=== PATIENT | female | born 1960 | race Caucasian/White ===

== ENCOUNTER 2019-07-03 10:37 | Outpatient (REF) | payer BC, SELFPAY ==
[2019-07-03 21:40] LABS: Abs Immature Grans 0.01 k/cumm (0.0-0.09); Absolute Basophil Count 0.02 k/cumm (0.0-0.2); Absolute Eosinophil Count 0.12 k/cumm (0.0-0.7); Absolute Lymphocyte Count 1.84 k/cumm (1.2-3.4); Absolute Monocyte Count 0.53 k/cumm (0.11-0.7); Absolute Neutrophil Count 3.03 k/cumm (1.2-6.7); Basophils % 0.4; Eosinophils % 2.2; HCT 38.4 % (36.0-46.0); HGB 12.7 g/dL (12.0-15.5); Immature Grans % 0.2; Lymphocytes % 33.2; Mean Corp. HGB Concentration 33.1 g/dL (32.0-36.0); Mean Corpuscular Hemoglobin 31.2 pg (27.0-33.0); Mean Corpuscular Volume 94.3 fL (80-95); Mean Platelet Volume 11.6 fL (8.0-11.0); Monocytes % 9.5; Neutrophils % 54.5; Platelet Count 295 x1000/uL (130-400); RBC 4.07 m/cumm (4.00-5.20); RBC Distribution Width 12.9 % (11.7-14.6); White Blood Cell Count 5.55 k/cumm (4.4-10.8)
[2019-07-03 21:53] LABS: Anion Gap 10.5 mmol/L (3-11); BUN 21 mg/dL (7-18); CO2 26.5 mmol/L (21.0-32.0); CREATININE 0.85 mg/dL (0.55-1.02); Calcium 9.3 mg/dL (8.5-10.1); Calculated LDL 132 mg/dL; Chloride 103 mmol/L (98-107); Cholesterol 212 mg/dL (50-200); Glucose 99 mg/dL (70-100); HDL Cholesterol 69 mg/dL (40-60); Potassium 4.5 mmol/L (3.5-5.1); Sodium 140 mmol/L (136-145); Triglyceride 58 mg/dL (30-150)
== END 2019-07-03 10:57 ==
LOC: NCHCN 10:37
PROVIDERS: PCP Family Medicine; Visit Provider Family Medicine
DX: I10 Essential (primary) hypertension (principal); E78.2 Mixed hyperlipidemia
CPT/HCPCS: 80048; 80061; 83721; 85025

== ENCOUNTER 2020-06-05 10:52 | Outpatient (REF) | payer BC, SELFPAY ==
[2020-06-05 21:39] LABS: ALT 22 U/L (14-59); AST 15 U/L (15-37); Albumin 4.1 g/dL (3.4-5.0); Alkaline Phosphatase 65 U/L (46-116); Anion Gap 6.6 mmol/L (3-11); BUN 18 mg/dL (7-18); Bilirubin, Total 0.3 mg/dL (0.2-1.0); CO2 28.4 mmol/L (21.0-32.0); CREATININE 0.79 mg/dL (0.55-1.02); Calcium 9.6 mg/dL (8.5-10.1); Calculated LDL 164 mg/dL (<100); Chloride 104 mmol/L (98-107); Cholesterol 244 mg/dL (<200); Glucose 96 mg/dL (74-106); HDL Cholesterol 68 mg/dL (40-60); Potassium 4.6 mmol/L (3.5-5.1); Sodium 139 mmol/L (136-145); Total Protein 7.3 g/dL (6.4-8.2); Triglyceride 61 mg/dL (<150)
== END 2020-06-05 11:12 ==
LOC: NCHCN 10:52
PROVIDERS: PCP Family Medicine; Visit Provider Nurse Practitioner Family
DX: I10 Essential (primary) hypertension (principal); E78.2 Mixed hyperlipidemia; E66.3 Overweight
CPT/HCPCS: 80053; 80061; 83036

== ENCOUNTER 2020-12-12 15:16 | Outpatient (REF) | payer BC, SELFPAY ==
[2020-12-12 14:18] LABS: ALT 21 U/L (14-59); AST 13 U/L (15-37); Albumin 3.9 g/dL (3.4-5.0); Alkaline Phosphatase 62 U/L (46-116); Anion Gap 8.7 mmol/L (3-11); BUN 19 mg/dL (7-18); Bilirubin, Total 0.3 mg/dL (0.2-1.0); CO2 27.3 mmol/L (21.0-32.0); CREATININE 0.8 mg/dL (0.55-1.02); Calcium 9.2 mg/dL (8.5-10.1); Calculated LDL 134 mg/dL (<100); Chloride 103 mmol/L (98-107); Cholesterol 206 mg/dL (<200); Glucose 95 mg/dL (74-106); HDL Cholesterol 63 mg/dL (40-60); Potassium 4.7 mmol/L (3.5-5.1); Sodium 139 mmol/L (136-145); Total Protein 7.2 g/dL (6.4-8.2); Triglyceride 46 mg/dL (<150)
== END 2020-12-12 15:17 | disposition home or self-care (01) ==
LOC: NCHCN 15:16
PROVIDERS: PCP Family Medicine; Visit Provider Nurse Practitioner Family
DX: I10 Essential (primary) hypertension (principal); E78.2 Mixed hyperlipidemia
CPT/HCPCS: 80053; 80061

== ENCOUNTER 2021-09-16 09:02 | Outpatient (REF) | payer BC, SELFPAY ==
--- NOTE | 2021-09-16 08:05 | PAPFT_PTH ---
PATIENT: Ana Joel LOC: [facility] U#:[id number] AGE/SX: 61/F ROOM: RE09/16/[address]: Samantha Carr : 1960 BED: DIS: 09/16/2021 SPEC #: [id number] RECD: 09/16/21 18:28 STATUS: MADINA LAUGHLIN #: [id number] AJAY: 09/16/21 08:[address]: Samantha Carr DEPT: [facility] Cytology RECD BY: Luisa Ramirez ENTERED: 09/16/21 18:28 SP TYPE: PAPFT JONATHANHR DR: Kristen Rod Tissues: 1 - CX/ENDOCX FOR PAP SMEARS Procedures: PAP THIN PREP/UVM Screening HPV DNA PROBE Comments:
[2021-09-16 23:38] LABS: Hemoglobin A1C 5.7 % (<5.7)
[2021-09-16 23:43] LABS: BUN 17 mg/dL (7-18); CREATININE 0.8 mg/dL (0.55-1.02); Calculated LDL 158 mg/dL (<100); Cholesterol 242 mg/dL (<200); Glucose 89 mg/dL (74-106); HDL Cholesterol 65 mg/dL (40-60); Sodium 142 mmol/L (136-145); Triglyceride 99 mg/dL (<150)
[2021-09-16 23:44] LABS: Anion Gap 8.7 mmol/L (3-11); CO2 29.3 mmol/L (21.0-32.0); Chloride 104 mmol/L (98-107); Potassium 4.6 mmol/L (3.5-5.1)
== END 2021-09-16 09:03 | disposition home or self-care (01) ==
LOC: NCHCN 09:02
PROVIDERS: PCP Family Medicine; Visit Provider Nurse Practitioner Family
DX: Z12.4 Encounter for screening for malignant neoplasm of cervix (principal); Z11.51 Encounter for screening for human papillomavirus (HPV); I10 Essential (primary) hypertension; R73.03 Prediabetes; E78.2 Mixed hyperlipidemia
CPT/HCPCS: 80048; 80061; 88142; 83036; 87624

== ENCOUNTER 2023-02-11 16:05 | Outpatient (REF) | payer BC, SELFPAY ==
[2023-02-11 21:26] LABS: ALT 35 U/L (14-59); AST 21 U/L (15-37); Albumin 3.7 g/dL (3.4-5.0); Alkaline Phosphatase 81 U/L (46-116); Anion Gap 6.1 mmol/L (3-11); BUN 26 mg/dL (7-18); Bilirubin, Total 0.2 mg/dL (0.2-1.0); CO2 28.9 mmol/L (21.0-32.0); CREATININE 0.9 mg/dL (0.55-1.02); Calcium 9.2 mg/dL (8.5-10.1); Chloride 104 mmol/L (98-107); Estimated GFR 72.73 (mL/min/1.73m2); Glucose 104 mg/dL (74-106); Potassium 4.2 mmol/L (3.5-5.1); Sodium 139 mmol/L (136-145); Total Protein 7.7 g/dL (6.4-8.2)
== END 2023-02-11 16:06 | disposition home or self-care (01) ==
LOC: NCHCN 16:05
PROVIDERS: PCP Family Medicine; Visit Provider Family Medicine
DX: I10 Essential (primary) hypertension (principal); E78.2 Mixed hyperlipidemia; R73.03 Prediabetes; E66.9 Obesity, unspecified
CPT/HCPCS: 80053

== ENCOUNTER 2024-01-12 15:45 | Outpatient (REF) | payer BC, SELFPAY | END 2024-01-12 15:46 | disposition home or self-care (01) | LOC: NCHCN 15:45 | PROVIDERS: PCP Family Medicine; Referring Provider Family Medicine; Visit Provider Family Medicine | DX: R82.998 Other abnormal findings in urine (principal); R10.9 Unspecified abdominal pain | CPT/HCPCS: 87086 ==

== ENCOUNTER 2024-01-17 18:02 | Outpatient (REF) | payer BC, SELFPAY ==
[2024-01-17 21:29] LABS: Abs Immature Grans 0.02 10^3/uL (0.0-0.06); Absolute Basophil Count 0.03 10^3/uL (0.0-0.2); Absolute Eosinophil Count 0.06 10^3/uL (0.0-0.7); Absolute Lymphocyte Count 1.94 10^3/uL (1.2-3.4); Absolute Monocyte Count 1.04 10^3/uL (0.1-0.8); Absolute Neutrophil Count 7.54 10^3/uL (1.2-6.7); Basophils % 0.3; Eosinophils % 0.6; HCT 37.6 % (36.0-46.0); HGB 12.3 g/dL (11.2-15.7); Immature Grans % 0.2; Lymphocytes % 18.3; MCH 30.1 pg (27.0-33.0); MCHC 32.7 % (32.0-36.0); MCV 92 fL (80-95); MPV 11.2 fL (8.0-11.0); Monocytes % 9.8; Neutrophils % 70.8; Platelet Count 353 10^3/uL (130-400); RBC 4.08 10^6/uL (3.93-5.22); RDW 12.4 % (11.7-14.6); WBC 10.63 10^3/uL (4.4-10.8)
[2024-01-17 21:54] LABS: ALT 32 U/L (14-59); AST 21 U/L (15-37); Albumin 3.6 g/dL (3.4-5.0); Alkaline Phosphatase 90 U/L (46-116); Anion Gap 8.9 mmol/L (3-11); BUN 15 mg/dL (7-18); Bilirubin, Total 0.6 mg/dL (0.2-1.0); CO2 29.1 mmol/L (21.0-32.0); CREATININE 0.9 mg/dL (0.55-1.02); Calcium 9.7 mg/dL (8.5-10.1); Chloride 102 mmol/L (98-107); Estimated GFR 72.28 (mL/min/1.73m2); Glucose 106 mg/dL (74-106); Lipase 23 U/L (16-77); Potassium 3.6 mmol/L (3.5-5.1); Sodium 140 mmol/L (136-145); TSH (W/Ref FT4) 1.02 uIU/mL (0.36-3.74); Total Protein 8.3 g/dL (6.4-8.2)
== END 2024-01-17 18:03 | disposition home or self-care (01) ==
LOC: NCHCN 18:02
PROVIDERS: PCP Family Medicine; Visit Provider Registered Nurse
DX: R10.9 Unspecified abdominal pain (principal); E78.2 Mixed hyperlipidemia
CPT/HCPCS: 80053; 83690; 84443; 85025

== ENCOUNTER 2024-07-24 19:15 | Outpatient (REF) | payer BC, SELFPAY ==
--- OUTSIDE RECORDS SUMMARY | 2024-07-24 19:20 | XMS_ITS ---
Author Organization Unknown Address [address] [place] [phone] Phone Care Team Providers Care Employee Benefits Specialist Name Role Phone ARGELIA PICKENS Attending Unavailable Results MM SCREENING BILAT MAMMO W T JAMA W CAD - Completed: 12/17/2023 15:46 LOINC: [facility] [place], [place] [address] PACS [employer] BI ARCHITECT REPORT Patient Name: ROSEMARY LAKHANI MRN: Sex: : Age: [id number] F 1960 63 Account: Accession: Admit: StayType: [id number] 12/17/2023 O/P Ordered: Order ID: Submitted: Ordering Provider: 12/17/2023 15:28 [id number] NLS CELIO STOUT Completed: Technologist: Resulted: 12/17/2023 15:46 KVK 12/17/2023 16:46 Study Description: MM SCREENING BILAT MAMMO W KEREN W CAD Study Reason: Screening TECHNIQUE: 2D digital images with tomosynthesis, CView images and CAD COMPARISON: 2014 through 2020 FINDINGS: The breasts are composed of scattered fibroglandular densities, Breast Density category B. No suspicious masses or suspicious microcalcifications are seen. No skin thickening or abnormal axillary lymph nodes are seen. There has been no significant change from prior exams. IMPRESSION: BI-RADS Category 1, Negative mammogram Yearly screening mammography is recommended. Breast Density - Category B, scattered fibroglandular densities. Breast density Category C or D implies that the patient has dense breast tissue. Dense breast tissue can make it harder to find cancer on a mammogram. Dense breast tissue is also associated with an increased risk of breast cancer. This information about the result of the mammogram report was provided to the patient to raise their awareness. Use this report when you speak with the patient about their risks for breast cancer, which includes their family history. At that time, you may recommend additional screening tests (Ultrasound or MRI) as these tests may add significant information. A negative radiographic report should not delay biopsy if a dominant or clinically suspicious mass is present. Up to ten percent of cancers are not identified on mammography. A negative report may reinforce clinical impression. Adenosis and dense breasts may obscure an underlying neoplasm. False positive reports average 6 to 10%. Patient will receive a letter notifying them of these results. Report Digitally Signed by Ivania Brown on 12/17/2023 04:46 PM EST Social History Type Status Start Date End Date Code Code Syst em Smoking History Never smoker (Never Smoked) 755659057 CDC SoftwareOMED CT Sex Female Medications Medication Start Date End Date Route Frequency Dose Code Code System Medication Instructions Home Meds Cephalexin 500MG Oral Capsule 07/22/2024 Unknown ORAL TWICE A DAY 1 CAPSULE 231289 RxNorm TAKE 1 CAPSULE ORAL TWICE A DAY Hospital Discharge Instructions Should you have any questions prior to discharge, please contact a member of your healthcare team. If you have left the hospital and have any questions, please contact your primary care physician. Reason For Referral No Data Found Allergies and Adverse Reactions Allergy Substance Reaction Severity Start Date Concern Status Code Code System SULFA (sulfonamide) Rash (SNOMED-CT: 333630534) Active 01476260 SNOMED-CT Plan of Treatment MM SCREEN BILAT 12/17/2023 US RENAL 09/17/2021 Encounters Encounter Diagnosis Start Date Code Code Sys tem Encounter for screening mamm ogram for malignant neoplasm of breast 12/17/2023 SNOMED-CT Personal Care Team Section Performer Name Performer Role Active Date Inactive Da te
--- OUTSIDE RECORDS SUMMARY | 2024-07-24 19:21 | XMS_ITS ---
Author Organization Unknown Address [address] [place] [address] [phone] Phone Care Team Providers Care Speeder Frame Tender Name Role Phone MIRIAN HUGHES Registered Nurse Unavailable ALEX Zepeda Registered Nurse UnavailAsim Contreras Attending Unavailable ARGELIA CELIO Primary Unavailable UNLISTED PROVIDER - REQUESTED Xhandoff Un available Results URINALYSIS ROUTINE* - [facility] t Date/Time: 07/22/2024 20:08 [facility] ID: [id number] 8 [place], [place], [address] LOINC: Test Value Unit Reference Range Code Code System Flag COLLECTION MODE: VOID 91512-2 LOINC Color YELLOW yellow 5778-6 LOINC Appearance HAZY clear 5767-9 LOINC Glucose urine NEGATIVE negative mg/dl 74845-5 LOINC Bilirubin NEGATIVE negative 5770-3 LOINC Ketones 15 negative mg/dl 2514-8 LOINC A Spec gravity 1.015 1.003 - 1.030 5811-5 LOINC pH urine 6.5 5.0 - 7.0 2756-5 LOINC Protein NEGATIVE negative mg/dl 06395-0 LOINC Urobilinogen 0.2 <or= 1 EU/dl 52498-5 LOINC Nitrite NEGATIVE negative 5802-4 LOINC Blood NEGATIVE negative 5794-3 LOINC Leukocytes MODERATE negative 74409-9 LOINC A MICROSCOPIC* INDICATED WBCs 25-100 0-5 / hpf 78145-0 LOINC RBCs 0-5 0-5 / hpf 02902-3 LOINC Epith cells 5-10 0-5 / hpf 14057-2 LOINC Cell types squamous Crystals none none Bacteria moderate none Mucus none none 8247-9 LOINC Casts none none /lpf 06535-6 LOINC Other 35284-8 LOINC DRUG SCN 13 PANEL (MEDTOX)* - Collect Date/Time: 07/22/2024 20:08 [facility] ID: [id number] [address] [place] [address], [id number] LOINC: 20022-3 Test Value Unit Reference Range Code Code System Flag CANNABINOIDS POSITIVE Cutoff = 50 ng/mL 03068-6 LOINC A PHENCYCLIDINE NEGATIVE Cutoff = 25 ng/mL 85066-5 LOINC COCAINE NEGATIVE Cutoff = 150 ng/mL 76701-1 LOINC METHAMPHETAMINES NEGATIVE Cutoff = 50 0 ng/mL 69433-3 LOINC OPIATES NEGATIVE Cutoff = 100 ng/mL 05466-9 LOINC AMPHETAMINES NEGATIVE Cutoff = 500 ng/mL 18383-4 LOINC BENZODIAZEPINES NEGATIVE Cutoff = 150 ng/mL 68087-9 LOINC TRICYCLIC ANTIDEP NEGATIVE Cutoff = 3 00 ng/mL 3533-7 LOINC METHADONE NEGATIVE Cutoff = 200 ng/mL 31214-4 LOINC BARBITURATES NEGATIVE Cutoff = 200 ng/mL 19487-4 LOINC OXYCODONE NEGATIVE Cutoff = 100 ng/mL 07402-2 LOINC BUPRENORPHINE NEGATIVE Cutoff = 10 mg/mL 3414-0 LOINC LACTIC ACID - Collect Date/T christian: 07/22/2024 19:35 [facility] ID: [id number] [address] [place] [address], [address] LOINC: Test Value Unit Reference Range Code Code System Flag LACTIC ACID 2.3 mmol/L L=0.7 H=2.1 66777-7 LOINC H CBC W/ DIFFERENTIAL* - Colle ct Date/Time: 07/22/2024 18:15 [facility] ID: [id number] [address] [place] [address], [address] LOINC: 90707-6 Test Value Unit Reference Range Code Code System Flag WBC 10.77 th/cmm L=5.00 H=10.00 6690-2 LOINC H NEUT % 72.0 % L=40.0 H=80.0 LYMPH % 18.2 % L=10.0 H=50.0 MONO % 8.3 % L=2.0 H=12.0 95538-5 LOINC EOS % 0.6 % L=0.0 H=8.0 BASO % 0.3 % L=0.0 H=3.0 IG % 0.6 % L=0.0 H=1.1 2514-8 LOINC NRBC % 0.0 % L=0.0 H=0.0 32961-9 LOINC NEUT abs count 7.8 th/cmm L=1.6 H=8.4 751-8 LOINC LYMPH abs count 2.0 th/cmm L=1.5 H=4.0 731-0 LOINC MONO abs count 0.9 th/cmm L=0.2 H=1.0 742-7 LOINC EOS abs count 0.1 th/cmm L=0.0 H=0.5 711-2 LOINC BASO abs count 0.0 th/cmm L=0.0 H=0.2 704-7 LOINC IG abs count 0.1 th/cmm L=0.0 H=0.1 37715-6 LOINC NRBC abs count 0.0 mil/cmm L=0.0 H=0.0 59415-1 LOINC RBC 4.02 mil/cmm L=3.90 H=5.40 789-8 LOINC HEMOGLOBIN 12.5 gm/dL L=12.0 H=16.0 718-7 LOINC HEMATOCRIT 37 % L=37 H=47 4544-3 LOINC MCV 92 fL L=82 H=92 787-2 LOINC MCH 31.1 pg L=27.0 H=31.0 785-6 LOINC H MCHC 33.8 % L=32.0 H=36.0 786-4 LOINC RDW-SD 43.8 fL L=39.0 H=49.0 788-0 LOINC PLATELET COUNT 286 th/cmm L=150 H=450 777-3 LOINC TROPONIN HIGH SENSITIVITY* - Collect Date/Time: 07/22/2024 18:15 [facility] ID: [id number] [address] [place], [place], [address] LOINC: 43749-9 Test Value Unit Reference Range Code Code System Flag TROPONIN HS 9.7 pg/mL L=0.0 H=60.4 Specimen seq. ADM. COMPREHENSIVE METABOLIC PANE L (CMP) - Collect Date/Time: 07/22/2024 18:15 [facility] ID: [id number] [address] [place], [place], [address] LOINC: 20973-0 Test Value Unit Reference Range Code Code System Flag GLUCOSE 156 mg/dL L=70 H=116 2345-7 LOINC H BUN 23 mg/dL L=6 H=25 3094-0 LOINC CREATININE 1.21 mg/dL L=0.51 H=0.95 2160-0 LOINC H SODIUM SERUM 137 mmol/L L=136 H=145 2951-2 LOINC POTASSIUM SERUM 3.5 mmol/L L=3.4 H=5.2 2823-3 LOINC CHLORIDE SERUM 101 mmol/L L=96 H=110 2075-0 LOINC CARBON DIOXIDE (CO2) 24 mmol/L L=22 H=34 2028-9 LOINC ANION GAP 11.6 mmol/L 26785-3 LOINC CALCIUM SERUM 9.7 mg/dL L=8.2 H=10.2 03195-0 LOINC BILIRUBIN TOTAL 0.4 mg/dL L=0.0 H=1.3 1975-2 LOINC ALK. PHOS. 77 U/L L=46 H=116 6768-6 LOINC SGOT (AST) 20 U/L L=15 H=37 1920-8 LOINC SGPT (ALT) 23 U/L L=12 H=78 1742-6 LOINC TOTAL PROTEIN 7.7 gm/dL L=6.0 H=8.0 2885-2 LOINC ALBUMIN 3.9 gm/dL L=3.4 H=5.0 1751-7 LOINC AGE 64 years eGFR (non-Afr.Amer.) 45 mL/min 81527-2 LOINC eGFR (Afr-Qatari) 54 mL/min 44311-[address] ANGIOGRAPHY CHEST - Compl eted: 07/22/2024 20:43 LOINC: [facility] RADIOLOG[facility] [place], [place] [address] RADIOLOGY EDUCATION COUNSELOR REPORT Patient Name: ROSEMARY LAKHANI MRN: Sex: : Age: [id number] F 1960 64 Account: Accession: Admit: StayType: [id number] 07/22/2024 E Ordered: Order ID: Submitted: Ordering Provider: 07/22/2024 19:20 [id number] CROW TAYLOR Completed: Technologist: Resulted: 07/22/2024 20:27 AT 07/22/2024 21:12 EXAMINATION: CT ANGIOGRAPHY CHEST CLINICAL HISTORY: Reason for CT: ?pe; new afib Add'l Info: emesis w referred shoulder pain TECHNIQUE: Helical CT angiogram of the chest was performed following the intravenous administration of 71ml of Omnipaque 350. Maximum intensity projection (MIP) were reformatted. COMPARISON: July 21, 2018 FINDINGS: VASCULAR Heart: Normal size heart without significant pericardial effusion Aorta: Incompletely opacified. Normal caliber. Pulmonary arteries: No filling defects NON-VASCULAR Lungs and large airways: No consolidation. Central airways patent. Pleura: No pleural effusion. No pneumothorax. Mediastinum and biacna: Tiny hiatal hernia. No pathologically enlarged lymph nodes. 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 Limited views of the upper abdomen: No significant findings. Osseous structures: No acute fracture. No muscular asymmetry about the chest wall. IMPRESSION: No pulmonary artery embolism. Thank you for letting us participate in the care of this patient. If you are a health care provider and have any questions regarding this report, please contact the number below. For patients who have questions please contact the health youth care professional that requested your imaging first. Social History Type Status Start Date End Date Code Code Syst em Smoking History Never smoker (Never Smoked) [id number] SNOMED CT Sex Female Vital Signs Vital Sign Value Unit Pickett Value Pickett Unit Date/Time Recent/Initial? Code Code System Body Mass Index 35.43 kg/m2 07/22/2024 18:27 Initial 11781 -5 LOINC Systolic Blood Pressure 107 mm[Hg] 07/22/2024 22:43 Most Recent 8480- 6 LOINC Diastolic Blood Pressure 70 mm[Hg] 07/22/2024 22:43 Most Recent 8462- 4 LOINC Systolic Blood Pressure 104 mm[Hg] 07/22/2024 18:11 Initial 8480- 6 LOINC Diastolic Blood Pressure 69 mm[Hg] 07/22/2024 18:11 Initial 8462- 4 LOINC Body Surface Area 2.01 m2 07/22/2024 18:27 Initial 3140- 1 LOINC Height 160.020 0 cm 63.00 in 07/22/2024 18:27 Initial 8302- 2 LOINC O2 Saturation 96 % 2023 22:43 Most Recent 03677 -5 LOINC O2 Saturation 100 % 2023 18:11 Initial 78175 -5 LOINC Pulse 68.0 /min 07/22/2024 22:43 Most Recent 8867- 4 LOINC Pulse 155.0 /min 07/22/2024 18:11 Initial 8867- 4 LOINC Respiration 17 /min 07/22/20 22:43 Most Recent 9279- 1 LOINC Respiration 16 /min 07/22/20 18:11 Initial 9279- 1 LOINC Temperature 2.6 Zahida 36.7 F 07/22/20 18:11 Initial 8310- 5 LOINC Weight 90.72 kg 200.00 lbs 07/22/2024 18:27 Initial 32041 -7 LOINC Medications Medication Start Date End Date Route Frequency Dose Code Code System Medication Instructions Home Meds Cephalexin 500MG Oral Capsule 07/22/2024 Unknown ORAL TWICE A DAY 1 CAPSULE 616094 RxNorm TAKE 1 CAPSULE ORAL TWICE A [...] Code Code System SULFA (sulfonamide) Rash (SNOMED-CT: 508049890) Active 94699845 SNOMED-CT Plan of Treatment CULT BLOOD CULTURE 07/22/2024 LOINC: 600-7 CULT BLOOD CULTURE 07/22/2024 LOINC: 600-7 MM SCREEN BILAT 12/17/2023 US RENAL 09/17/2021 Personal Care Team Section Performer Name Performer Role Active Date Inactive Da te Imaging Narrative Notes [facility] [place], [place] [address] RADIOLOGY EDUCATION COUNSELOR REPORT Patient Name: ROSEMARY LAKHANI MRN: Sex: : Age: [id number] F 1960 64 Account: Accession: Admit: StayType: [id number] 07/22/2024 E Ordered: Order ID: Submitted: Ordering Provider: 07/22/2024 19:20 [id number] CROW TAYLOR Completed: Technologist: Resulted: 07/22/2024 20:27 AT 07/22/2024 21:12 EXAMINATION: CT ANGIOGRAPHY CHEST CLINICAL HISTORY: Reason for CT: ?pe; new afib Add'l Info: emesis w referred shoulder pain TECHNIQUE: Helical CT angiogram of the chest was performed following the intravenous administration of 71ml of Omnipaque 350. Maximum intensity projection (MIP) were reformatted. COMPARISON: July 21, 2018 FINDINGS: VASCULAR Heart: Normal size heart without significant pericardial effusion Aorta: Incompletely opacified. Normal caliber. Pulmonary arteries: No filling defects NON-VASCULAR Lungs and large airways: No consolidation. Central airways patent. Pleura: No pleural effusion. No pneumothorax. Mediastinum and bianca: Tiny hiatal hernia. No pathologically enlarged lymph nodes. 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 Limited views of the upper abdomen: No significant findings. Osseous structures: No acute fracture. No muscular asymmetry about the chest wall.
--- OUTSIDE RECORDS SUMMARY | 2024-07-24 19:21 | XMS_ITS | Data Portability ---
Author Organization [place] - [facility] Address [address] [facility] [place] [address] Assessment No assessment recorded. Plan of Treatment Reminders Order Date Submit Date Provider Last Modified By Organization Details Last Modified Time Details Appointments follow up ER 2023 09:40A M Not available Not available Not available Annual Wellness Exam 40 2023 09:50A M Not available Not available Not available Lab urinalysi s, dipstick [address], [address] [place] [address], [phone], 01/13/2024 08:21:47 influenza virus A + B + SARS-CoV- 2 (COVID19) Ag panel, rapid IA, upper respirato ry specimen [address], [address] [place] [address], [address], 01/13/2024 08:21:49 culture, urine + sensitivi ty 2023 024 [email or web address] [facility] (Registration ), [address] [place] [address] [place], [address], 01/19/2024 06:57:51 urinalysi s, dipstick [address], 4 [place], [address], 01/17/2024 16:36:20 CBC w/ diff [address] Laboratory (Registration ), [address] [place] [address] [place], [address], 01/24/2024 06:56:41 CMP, serum or plasma 2023 024 [email or web address] [facility] (Registration ), [address] [place] [address] [place] [facility] [place], [address], 01/17/2024 21:56:35 lipase, serum or plasma [address] Laboratory (Registration ), [address] [place] [address] [place], [address], 01/24/2024 06:56:47 TSH, serum, reflex free T4 [address] Laboratory (Registration ), [address] [place] [address] [place], [address], 01/24/2024 06:56:53 Referral None recorded. Procedures None recorded. Surgeries None recorded. Imaging None recorded. Medication Orders None recorded. Patient TargetsNo targets recorded. Patient Instructions Encounter Date Encounter Id Patient Instructions Last Modified By Organization Details Last Modified Time 01/12/2024 [id number] It was nice to meet you, Kimberley. We'll call with your flu/Covid results. I'm sending your urine for culture, but I doubt that's what this is. Increase fluids and fiber, add stool softener, consider magnesium citrate and/or Miralax. If no better by next week, or if worsening, call us and we'll check blood work. Take care! [email or web address] Not available 01/12/2024 10:14:44 01/17/2024 [id number] It was good to s ee you! We are checking some labs today. I would try a liquid diet for a couple of days to see if this relieves your symptoms. We are checking labs today - if these indicate you might have diverticulitis we can work on getting you a CT scan. Take care! [email or web address] Not available 01/17/2024 15:09:59 Reason for Referral None Reported. Results Created Date Observation Date Name Description Value Unit Range Abnormal Flag Note LastModifiedBy Organization Detail LastModifiedTime 01/12/20 24 01/13/2024 URINE CULTU RE urine culture Urine Cultu re APPEA RAFAEL Mixed Gram Posit jaguar Ilda COLON Y COUNT Not Available [address] [place], [address] 01/13/2024 11:03:09 01/12/20 24 01/13/2024 URINE CULTU RE urine culture colon ies/m L <10,0 00 Day 1 Resul t ISOLA DEMIAN BELOW O:GPF M (ORGA NISM ID: 1.1) - GRAM POSIT JAGUAR ILDA ,MIXE D Urine Cultu re (ORGA NISM ID: 1.1) - COLON Y COUNT (ORGA NISM ID: 1.1) - <10,0 00 Not Available [address] [place], [address] 01/13/2024 11:03:09 01/12/20 24 01/14/2024 URINE CULTU RE urine culture Urine Cultu re Proba ble conta minat ed colle ction APPEA RAFAEL Mixed Gram Posit jaguar Ilda APPEA RAFAEL Mixed Gram Posit jaguar Ilda COLON Y COUNT Not Available [address] [place], [address] 01/14/2024 08:29:12 01/12/20 24 01/14/2024 URINE CULTU RE urine culture colon ies/m L <10,0 00 COLON Y COUNT 10,00 0 - 50,00 0 Day 1 Resul t ISOLA DEMIAN BELOW Day 2 Resul t ISOLA DEMIAN BELOW O:GPF M (ORGA NISM ID: 1.1) - GRAM POSIT JAGUAR ILDA ,MIXE D Urine Cultu re (ORGA NISM ID: 1.1) - COLON Y COUNT (ORGA NISM ID: 1.1) - 10,00 0 - 50,00 0 Not Available [address], [address] 01/14/2024 08:29:12 01/12/20 24 01/12/2024 influ mahnaz virus A + B + SARS- CoV-2 (COVI D19) Ag panel , rapid IA, upper respi rator y speci men Influenza A negati ve Not Available [address], [address], 01/12/2024 10:24:41 01/12/20 24 01/12/2024 influ mahnaz virus A + B + SARS- CoV-2 (COVI D19) Ag panel , rapid IA, upper respi rator y speci men Influenza B negati ve Not Available [address], [address], 01/12/2024 10:24:41 01/12/20 24 01/12/2024 influ mahnaz virus A + B + SARS- CoV-2 (COVI D19) Ag panel , rapid IA, upper respi rator y speci men SARS-COV-2 negati ve Not Available [address], [address], 01/12/2024 10:24:41 01/12/20 24 01/12/2024 urina lysis , dipst ick Leukocytes Small Not Available [address], [address], 01/12/2024 09:41:54 01/12/20 24 01/12/2024 urina lysis , dipst ick Nitrite negati ve Not Available [address], [address], 01/12/2024 09:41:54 01/12/20 24 01/12/2024 urina lysis , dipst ick Urobilinogen .2 Not Available [address], [address], 01/12/2024 09:41:54 01/12/20 24 01/12/2024 urina lysis , dipst ick Protein Negati ve Not Available [address], [address], 01/12/2024 09:41:54 01/12/20 24 01/12/2024 urina lysis , dipst ick pH 5.0 Not Available [address], [address], 01/12/2024 09:41:54 01/12/20 24 01/12/2024 urina lysis , dipst ick Blood Non-He molyze d: Modera te Not Available [address], [address], 01/12/2024 09:41:54 01/12/20 24 01/12/2024 urina lysis , dipst ick Specific [place] 1.025 Not Available [address], [address], 01/12/2024 09:41:54 01/12/20 24 01/12/2024 urina lysis , dipst ick Ketone Trace Not Available [address], [address], 01/12/2024 09:41:54 01/12/20 24 01/12/2024 urina lysis , dipst ick Bilirubin Negati ve Not Available [address], [address], 01/12/2024 09:41:54 01/12/20 24 01/12/2024 urina lysis , dipst ick Glucose Negati ve Not Available [facility] 4 [place], [address], 01/12/2024 09:41:54 01/12/20 24 01/12/2024 urina lysis , dipst ick Appearance Slight ly Cloudy Not Available [facility] 4 [place], [address], 01/12/2024 09:41:54 01/12/20 24 01/12/2024 urina lysis , dipst ick Color Yellow Not Available [facility] 4 [place], [address], 01/12/2024 09:41:54 01/17/20 24 01/17/2024 COMPL ETE BLOOD COUNT W/DIF F WBC 10.63 10_3/ uL 4.4-10 .8 normal Not Available [address] [place], [address] 01/17/2024 21:39:34 01/17/20 24 01/17/2024 COMPL ETE BLOOD COUNT W/DIF F RBC 4.08 10_6/ uL 3.93-5 .22 normal Not Available [address] [place], [address] 01/17/2024 21:39:34 01/17/20 24 01/17/2024 COMPL ETE BLOOD COUNT W/DIF F HGB 12.3 g/dL 11.2-1 5.7 normal Not Available [address] [place], [address] 01/17/2024 21:39:34 01/17/20 24 01/17/2024 COMPL ETE BLOOD COUNT W/DIF F HCT 37.6 % 36.0-4 6.0 normal Not Available [address] [place], [address] 01/17/2024 21:39:34 01/17/20 24 01/17/2024 COMPL ETE BLOOD COUNT W/DIF F MCV 92 fL 80-95 normal Not Available Ananth das [address] [place], [address] 01/17/2024 21:39:34 01/17/20 24 01/17/2024 COMPL ETE BLOOD COUNT W/DIF F MCH 30.1 pg 27.0-3 3.0 normal Not Available [address] [place], [address] 01/17/2024 21:39:34 01/17/20 24 01/17/2024 COMPL ETE BLOOD COUNT W/DIF F MCHC 32.7 % 32.0-3 6.0 normal Not Available [address] [place], [address] 01/17/2024 21:39:34 01/17/20 24 01/17/2024 COMPL ETE BLOOD COUNT W/DIF F RDW 12.4 % 11.7-1 4.6 normal Not Available [address] [place], [address] 01/17/2024 21:39:34 01/17/20 24 01/17/2024 COMPL ETE BLOOD COUNT W/DIF F platelet count 353 10_3/ uL 130-40 0 normal Not Available [address] [place], [address] 01/17/2024 21:39:34 01/17/20 24 01/17/2024 COMPL ETE BLOOD COUNT W/DIF F MPV 11.2 fL 8.0-11 .0 high Not Available [address] [place], [address] 01/17/2024 21:39:34 01/17/20 24 01/17/2024 COMPL ETE BLOOD COUNT W/DIF F neutrophils % 70.8 Not Available [place] [facility] [address] [place], [address] 01/17/2024 21:39:34 01/17/20 24 01/17/2024 COMPL ETE BLOOD COUNT W/DIF F lymphocytes % 18.3 Not Available [facility] [address] [place], [address] 01/17/2024 21:39:34 01/17/20 24 01/17/2024 COMPL ETE BLOOD COUNT W/DIF F monocytes % 9.8 Not Available [address] [place], [address] 01/17/2024 21:39:34 01/17/20 24 01/17/2024 COMPL ETE BLOOD COUNT W/DIF F eosinophils % 0.6 Not Available [address] [place], [address] 01/17/2024 21:39:34 01/17/20 24 01/17/2024 COMPL ETE BLOOD COUNT W/DIF F basophils % 0.3 Not Available [address] [place], [address] 01/17/2024 21:39:34 01/17/20 24 01/17/2024 COMPL ETE BLOOD COUNT W/DIF F immature grans % 0.2 Not Available [address] [place], [address] 01/17/2024 21:39:34 01/17/20 24 01/17/2024 COMPL ETE BLOOD COUNT W/DIF F nucleated RBC 0.0 % 0.0-0. 3 normal Not Available [address] [place], [address] 01/17/2024 21:39:34 01/17/20 24 01/17/2024 COMPL ETE BLOOD COUNT W/DIF F absolute neutrophil count 7.54 10_3/ uL 1.2-6. 7 high Not Available [address] [place], [address] 01/17/2024 21:39:34 01/17/20 24 01/17/2024 COMPL ETE BLOOD COUNT W/DIF F absolute lymphocyte count 1.94 10_3/ uL 1.2-3. 4 normal Not Available [address] [place], [address] 01/17/2024 21:39:34 01/17/20 24 01/17/2024 COMPL ETE BLOOD COUNT W/DIF F absolute monocyte count 1.04 10_3/ uL 0.1-0. 8 high Not Available [address] [place], [address] 01/17/2024 21:39:34 01/17/20 24 01/17/2024 COMPL ETE BLOOD COUNT W/DIF F absolute eosinophil count 0.06 10_3/ uL 0.0-0. 7 normal Not Available [address], [address] 01/17/2024 21:39:34 01/17/20 24 01/17/2024 COMPL ETE BLOOD COUNT W/DIF F absolute basophil count 0.03 10_3/ uL 0.0-0. 2 normal Not Available [address], [address] 01/17/2024 21:39:34 01/17/20 24 01/17/2024 COMPR EHENS JAGUAR METAB OLIC PANEL calcium 9.7 mg/dL 8.5-10 .1 normal Not Available [address] [place], [address] 01/17/2024 21:56:35 01/17/20 24 01/17/2024 COMPR EHENS JAGUAR METAB OLIC PANEL glucose 106 mg/dL 74-106 normal Not Available Ananth das [address] [place], [address] 01/17/2024 21:56:35 01/17/20 24 01/17/2024 COMPR EHENS JAGUAR METAB OLIC PANEL BUN 15 mg/dL 7-18 normal Not Available Ananth [address] [place], [address] 01/17/2024 21:56:35 01/17/20 24 01/17/2024 COMPR EHENS JAGUAR METAB OLIC PANEL creatinine 0.9 mg/dL 0.55-1 .02 normal Not Available [address], [address] 01/17/2024 21:56:35 01/17/20 24 01/17/2024 COMPR EHENS JAGUAR METAB OLIC PANEL estimated GFR 72.28 mL/min /1.73m 2 The eGFR is calcu lated from a serum creat inine using the CKD-E PI 2020 equat ion. Other varia bles requi red for the equat ion are gende r and age; this equat ion does not inclu de a race coeff icien t. This equat ion has simil ar overa ll perfo rmanc e to previ ous equat ions excep t value s may diffe r, in parti cular , in patie nts with highe r value s of eGFR and young er-ag ed adult s. Not Available [address] [place], [address] 01/17/2024 21:56:35 01/17/20 24 01/17/2024 COMPR EHENS JAGUAR METAB OLIC PANEL total protein 8.3 g/dL 6.4-8. 2 high Not Available [address] [place], [address] 01/17/2024 21:56:35 01/17/20 24 01/17/2024 COMPR EHENS JAGUAR METAB OLIC PANEL albumin 3.6 g/dL 3.4-5. 0 normal Not Available [address] [place], [address] 01/17/2024 21:56:35 01/17/20 24 01/17/2024 COMPR EHENS JAGUAR METAB OLIC PANEL bilirubin, total 0.6 mg/dL 0.2-1. 0 normal Not Available [address] [place], [address] 01/17/2024 21:56:35 01/17/20 24 01/17/2024 COMPR EHENS JAGUAR METAB OLIC PANEL alk phos 90 U/L 46-116 normal Not Available [address] [place], [address] 01/17/2024 21:56:35 01/17/20 24 01/17/2024 COMPR EHENS JAGUAR METAB OLIC PANEL sodium 140 mmol/ L 136-14 5 normal Not Available [address] [place], [address] 01/17/2024 21:56:35 01/17/20 24 01/17/2024 COMPR EHENS JAGUAR METAB OLIC PANEL potassium 3.6 mmol/ L 3.5-5. 1 normal Not Available [address] [place], [address] 01/17/2024 21:56:35 01/17/20 24 01/17/2024 COMPR EHENS JAGUAR METAB OLIC PANEL chloride 102 mmol/ L 98-107 normal Not Available [address] [place], [address] 01/17/2024 21:56:35 01/17/20 24 01/17/2024 COMPR EHENS JAGUAR METAB OLIC PANEL CO2 29.1 mmol/ L 21.0-3 2.0 normal Not Available [address], [address] 01/17/2024 21:56:35 01/17/20 24 01/17/2024 COMPR EHENS JAGUAR METAB OLIC PANEL anion gap 8.9 mmol/ L 3-11 normal Not Available [address] [place], [address] 01/17/2024 21:56:35 01/17/20 24 01/17/2024 COMPR EHENS JAGUAR METAB OLIC PANEL AST 21 U/L 15-37 normal Not Available Ananth [address] [place], [address] 01/17/2024 21:56:35 01/17/20 24 01/17/2024 COMPR EHENS JAGUAR METAB OLIC PANEL ALT 32 U/L 14-59 normal Not Available [address] [place], [address] 01/17/2024 21:56:35 01/17/20 24 01/17/2024 TSH (W/RE F FT4) TSH (w/ref FT4) 1.02 uIU/m L 0.36-3 .74 normal Not Available [address], [address] 01/17/2024 21:56:35 01/17/20 24 01/17/2024 LIPAS E lipase 23 U/L 16-77 normal Not Available Ananth [address] [place], [address] 01/17/2024 21:56:36 01/17/20 24 01/17/2024 urina lysis , dipst ick Leukocytes Negati ve Not Available [address], [address], 01/17/2024 14:52:00 01/17/20 24 01/17/2024 urina lysis , dipst ick Nitrite negati ve Not Available [address], [address], 01/17/2024 14:52:00 01/17/20 24 01/17/2024 urina lysis , dipst ick Urobilinogen .2 Not Available [address], [address], 01/17/2024 14:52:00 01/17/20 24 01/17/2024 urina lysis , dipst ick Protein Negati ve Not Available [address], [address], 01/17/2024 14:52:00 01/17/20 24 01/17/2024 urina lysis , dipst ick pH 6.5 Not Available [address], [address], 01/17/2024 14:52:00 01/17/20 24 01/17/2024 urina lysis , dipst ick Blood Negati ve Not Available [address], [address], 01/17/2024 14:52:00 01/17/20 24 01/17/2024 urina lysis , dipst ick Specific [place] 1.005 Not Available [address], [address], 01/17/2024 14:52:00 01/17/20 24 01/17/2024 urina lysis , dipst ick Ketone Negati ve Not Available [address], [address], 01/17/2024 14:52:00 01/17/20 24 01/17/2024 urina lysis , dipst ick Bilirubin Negati ve Not Available [address], [address], 01/17/2024 14:52:00 01/17/20 24 01/17/2024 urina lysis , dipst ick Glucose Negati ve Not Available [address], [address], 01/17/2024 14:52:00 01/17/20 24 01/17/2024 urina lysis , dipst ick Appearance Clear Not Available [address], [address], 01/17/2024 14:52:00 01/17/20 24 01/17/2024 urina lysis , dipst ick Color Pale Yellow Not Available [address], [address], 01/17/2024 14:52:00 07/22/20 24 07/22/2024 CBC W/ DIFFE RENTI AL* WBC 10.77 TH/cm m 5.00 - 10.[address] [facility] (Lab) [address] [place] [address], [address], 07/22/2024 18:50:45 07/22/20 24 07/22/2024 CBC W/ DIFFE RENTI AL* neut % 72.0 % 40.0 - 80.[address] [facility] (Lab) [address] [place] [address], [address], 07/22/2024 18:50:45 07/22/20 24 07/22/2024 CBC W/ DIFFE RENTI AL* lymph % 18.2 % 10.0 - 50.[address] [facility] (Lab) [address] [place] [address], [address], 07/22/2024 18:50:45 07/22/20 24 07/22/2024 CBC W/ DIFFE RENTI AL* mono % 8.3 % 2.0 - 12.[address] [facility] (Lab) [address] [place] [address], [address], 07/22/2024 18:50:45 07/22/20 24 07/22/2024 CBC W/ DIFFE RENTI AL* eos % 0.6 % 0.0 - 8.[address] [facility] (Lab) [address] [place] [address], [address], 07/22/2024 18:50:45 07/22/20 24 07/22/2024 CBC W/ DIFFE RENTI AL* baso % 0.3 % 0.0 - 3.[address] [facility] (Lab) [address] [place] [address], [address], 07/22/2024 18:50:45 07/22/20 24 07/22/2024 CBC W/ DIFFE RENTI AL* Ig % 0.6 % 0.0 - 1.[address] [facility] (Lab) [address] [place] [address], [address], 07/22/2024 18:50:45 07/22/20 24 07/22/2024 CBC W/ DIFFE RENTI AL* NRBC % 0.0 % 0.0 - 0.[address] [facility] (Lab) [address] [place] [address], [address], 07/22/2024 18:50:45 07/22/20 24 07/22/2024 CBC W/ DIFFE RENTI AL* neut abs count 7.8 TH/cm m 1.6 - 8.[address] [facility] (Lab) [address] [place] [address], [address], 07/22/2024 18:50:45 07/22/20 24 07/22/2024 CBC W/ DIFFE RENTI AL* lymph abs count 2.0 TH/cm m 1.5 - 4.[address] [facility] (Lab) [address] [place], [address], 07/22/2024 18:50:45 07/22/20 24 07/22/2024 CBC W/ DIFFE RENTI AL* mono abs count 0.9 TH/cm m 0.2 - 1.[address] [facility] (Lab) [address] [place] [address], [address], 07/22/2024 18:50:45 07/22/20 24 07/22/2024 CBC W/ DIFFE RENTI AL* eos abs count 0.1 TH/cm m 0.0 - 0.[address] [facility] (Lab) [address] [place] [address], [address], 07/22/2024 18:50:45 07/22/20 24 07/22/2024 CBC W/ DIFFE RENTI AL* baso abs count 0.0 TH/cm m 0.0 - 0.[address] [facility] (Lab) [address] [place] [address], [address], 07/22/2024 18:50:45 07/22/20 24 07/22/2024 CBC W/ DIFFE RENTI AL* Ig abs count 0.1 TH/cm m 0.0 - 0.[address] [facility] (Lab) [address] [place] [address], [address], 07/22/2024 18:50:45 07/22/20 24 07/22/2024 CBC W/ DIFFE RENTI AL* NRBC abs count 0.0 mil/c mm 0.0 - 0.[address] [facility] (Lab) [address] [place] [address], [address], 07/22/2024 18:50:45 07/22/20 24 07/22/2024 CBC W/ DIFFE RENTI AL* RBC 4.02 mil/c mm 3.90 - 5.[address] [facility] (Lab) [address] [place] [address], [address], 07/22/2024 18:50:45 07/22/20 24 07/22/2024 CBC W/ DIFFE RENTI AL* hemoglobin 12.5 gm/dL 12.0 - 16.[address] [facility] (Lab) [address] [place] [address], [address], 07/22/2024 18:50:45 07/22/20 24 07/22/2024 CBC W/ DIFFE RENTI AL* hematocrit 37 % 37 - [address] [facility] (Lab) [address] [place] [address], [address], 07/22/2024 18:50:45 07/22/20 24 07/22/2024 CBC W/ DIFFE RENTI AL* MCV 92 fL 82 - [address] [facility] (Lab) [address] [place] [address], [address], 07/22/2024 18:50:45 07/22/20 24 07/22/2024 CBC W/ DIFFE RENTI AL* MCH 31.1 pg 27.0 - 31.[address] [facility] (Lab) [address] [place] [address], [address], 07/22/2024 18:50:45 07/22/20 24 07/22/2024 CBC W/ DIFFE RENTI AL* MCHC 33.8 % 32.0 - 36.[address] [facility] (Lab) [address] [place] [address], [address], 07/22/2024 18:50:45 07/22/20 24 07/22/2024 CBC W/ DIFFE RENTI AL* RDW-SD 43.8 fL 39.0 - 49.[address] [facility] (Lab) [address] [place] [address], [address], 07/22/2024 18:50:45 07/22/20 24 07/22/2024 CBC W/ DIFFE RENTI AL* platelet count 286 TH/cm m 150 - [address] [facility] (Lab) [address] [place] [address], [address], 07/22/2024 18:50:45 07/22/20 24 07/22/2024 CBC W/ DIFFE RENTI AL* WBC 10.77 TH/cm m 5.00 - 10.[address] [facility] (Lab) [address] [place] [address], [address], 07/22/2024 18:51:46 07/22/20 24 07/22/2024 CBC W/ DIFFE RENTI AL* neut % 72.0 % 40.0 - 80.[address] [facility] (Lab) [address] [place] [address], [address], 07/22/2024 18:51:46 07/22/20 24 07/22/2024 CBC W/ DIFFE RENTI AL* lymph % 18.2 % 10.0 - 50.[address] [facility] (Lab) [address] [place] [address], [address], 07/22/2024 18:51:46 07/22/20 24 07/22/2024 CBC W/ DIFFE RENTI AL* mono % 8.3 % 2.0 - 12.[address] [facility] (Lab) [address] [place] [address], [address], 07/22/2024 18:51:46 07/22/20 24 07/22/2024 CBC W/ DIFFE RENTI AL* eos % 0.6 % 0.0 - 8.[address] [facility] (Lab) [address] [place] [address], [address], 07/22/2024 18:51:46 07/22/20 24 07/22/2024 CBC W/ DIFFE RENTI AL* baso % 0.3 % 0.0 - 3.[address] [facility] (Lab) [address] [place] [address], [address], 07/22/2024 18:51:46 07/22/20 24 07/22/2024 CBC W/ DIFFE RENTI AL* Ig % 0.6 % 0.0 - 1.[address] [facility] (Lab) [address] [place] [address], [address], 07/22/2024 18:51:46 07/22/20 24 07/22/2024 CBC W/ DIFFE RENTI AL* NRBC % 0.0 % 0.0 - 0.[address] [facility] (Lab) [address] [place] [address], [address], 07/22/2024 18:51:46 07/22/20 24 07/22/2024 CBC W/ DIFFE RENTI AL* neut abs count 7.8 TH/cm m 1.6 - 8.[address] [facility] (Lab) [address] [place] [address], [address], 07/22/2024 18:51:46 07/22/20 24 07/22/2024 CBC W/ DIFFE RENTI AL* lymph abs count 2.0 TH/cm m 1.5 - 4.[address] [facility] (Lab) [address] [place] [address], [address], 07/22/2024 18:51:46 07/22/20 24 07/22/2024 CBC W/ DIFFE RENTI AL* mono abs count 0.9 TH/cm m 0.2 - 1.[address] [facility] (Lab) [address] [place] [address], [id number], 07/22/2024 18:51:46 07/22/20 24 07/22/2024 CBC W/ DIFFE RENTI AL* eos abs count 0.1 TH/cm m 0.0 - 0.[address] [facility] (Lab) [address] [place] [address], [id number], 07/22/2024 18:51:46 07/22/20 24 07/22/2024 CBC W/ DIFFE RENTI AL* baso abs count 0.0 TH/cm m 0.0 - 0.[address] [facility] (Lab) [address] [place] [address], [id number], 07/22/2024 18:51:46 07/22/20 24 07/22/2024 CBC W/ DIFFE RENTI AL* Ig abs count 0.1 TH/cm m 0.0 - 0.[address] [facility] (Lab) [address] [place] [address], [id number], 07/22/2024 18:51:46 07/22/20 24 07/22/2024 CBC W/ DIFFE RENTI AL* NRBC abs count 0.0 mil/c mm 0.0 - 0.[address] [facility] (Lab) [address] [place] [address], [id number], 07/22/2024 18:51:46 07/22/20 24 07/22/2024 CBC W/ DIFFE RENTI AL* RBC 4.02 mil/c mm 3.90 - 5.[address] [facility] (Lab) [address] [place] [address], [id number], 07/22/2024 18:51:46 07/22/20 24 07/22/2024 CBC W/ DIFFE RENTI AL* hemoglobin 12.5 gm/dL 12.0 - 16.[address] [facility] (Lab) [address] [place] [address], [id number], 07/22/2024 18:51:46 07/22/20 24 07/22/2024 CBC W/ DIFFE RENTI AL* hematocrit 37 % 37 - [address] [facility] (Lab) [address] [place] [address], [id number], 07/22/2024 18:51:46 07/22/20 24 07/22/2024 CBC W/ DIFFE RENTI AL* MCV 92 fL 82 - [address] [facility] (Lab) [address] [place] [address], [id number], 07/22/2024 18:51:46 07/22/20 24 07/22/2024 CBC W/ DIFFE RENTI AL* MCH 31.1 pg 27.0 - 31.[address] [facility] (Lab) [address] [place] [address], [id number], 07/22/2024 18:51:46 07/22/20 24 07/22/2024 CBC W/ DIFFE RENTI AL* MCHC 33.8 % 32.0 - 36.[address] [facility] (Lab) [address] [place] [address], [id number], 07/22/2024 18:51:46 07/22/20 24 07/22/2024 CBC W/ DIFFE RENTI AL* RDW-SD 43.8 fL 39.0 - 49.[address] [facility] (Lab) [address] [place] [address], [id number], 07/22/2024 18:51:46 07/22/20 24 07/22/2024 CBC W/ DIFFE RENTI AL* platelet count 286 TH/cm m 150 - [address] [facility] (Lab) [address] [place] [address], 55706, 07/22/2024 18:51:46 07/22/20 24 07/22/2024 TROPO CONNIE HIGH SENSI TIVIT Y* troponin hs 9.7 pg/mL 0.0 - 60.[address] [facility] (Lab) [address] [place] [address], 32577, 07/22/2024 19:03:46 07/22/20 24 07/22/2024 TROPO CONNIE HIGH SENSI TIVIT Y* specimen seq. ADM. Not Available [facility] (Lab) [address] [place] [address], 03935, 07/22/2024 19:03:46 07/22/20 24 07/22/2024 COMPR EHENS JAGUAR METAB OLIC PANEL (CMP) glucose 156 mg/dL 70 - [address] [facility] (Lab) [address] [place] [address], 78924, 07/22/2024 19:03:47 07/22/20 24 07/22/2024 COMPR EHENS JAGUAR METAB OLIC PANEL (CMP) BUN 23 mg/dL 6 - [address] [facility] (Lab) [address] [place] [address], 51421, 07/22/2024 19:03:47 07/22/20 24 07/22/2024 COMPR EHENS JAGUAR METAB OLIC PANEL (CMP) creatinine 1.21 mg/dL 0.51 - 0.[address] [facility] (Lab) [address] [place] [address], 15482, 07/22/2024 19:03:47 07/22/20 24 07/22/2024 COMPR EHENS JAGUAR METAB OLIC PANEL (CMP) sodium serum 137 mmol/ L 136 - [address] [facility] (Lab) [address] [place] [address], 18329, 07/22/2024 19:03:47 07/22/20 24 07/22/2024 COMPR EHENS JAGUAR METAB OLIC PANEL (CMP) potassium serum 3.5 mmol/ L 3.4 - 5.[address] [facility] (Lab) [address] [place], [address], 07/22/2024 19:03:47 07/22/20 24 07/22/2024 COMPR EHENS JAGUAR METAB OLIC PANEL (CMP) chloride serum 101 mmol/ L 96 - [address] [facility] (Lab) [address] [place] [address], 91121, 07/22/2024 19:03:47 07/22/20 24 07/22/2024 COMPR EHENS JAGUAR METAB OLIC PANEL (CMP) carbon dioxide (co2) 24 mmol/ L 22 - [address] [facility] (Lab) [address] [place] [address], 93478, 07/22/2024 19:03:47 07/22/20 24 07/22/2024 COMPR EHENS JAGUAR METAB OLIC PANEL (CMP) anion gap 11.6 mmol/ L Not Available [facility] (Lab) [address] [place] [address], 14567, 07/22/2024 19:03:47 07/22/20 24 07/22/2024 COMPR EHENS JAGUAR METAB OLIC PANEL (CMP) calcium serum 9.7 mg/dL 8.2 - 10.[address] [facility] (Lab) [address] [place] [address], 16817, 07/22/2024 19:03:47 07/22/20 24 07/22/2024 COMPR EHENS JAGUAR METAB OLIC PANEL (CMP) bilirubin total 0.4 mg/dL 0.0 - 1.[address] [facility] (Lab) [address] [place] [address], 93709, 07/22/2024 19:03:47 07/22/20 24 07/22/2024 COMPR EHENS JAGUAR METAB OLIC PANEL (CMP) alk. phos. 77 U/L 46 - [address] [facility] (Lab) [address] [place] [address], 34040, 07/22/2024 19:03:47 07/22/20 24 07/22/2024 COMPR EHENS JAGUAR METAB OLIC PANEL (CMP) SGOT (AST) 20 U/L 15 - [address] [facility] (Lab) [address] [place], [address], 07/22/2024 19:03:47 07/22/20 24 07/22/2024 COMPR EHENS JAGUAR METAB OLIC PANEL (CMP) SGPT (ALT) 23 U/L 12 - [address] [facility] (Lab) [address] [place] [address], 87236, 07/22/2024 19:03:47 07/22/20 24 07/22/2024 COMPR EHENS JAGUAR METAB OLIC PANEL (CMP) total protein 7.7 gm/dL 6.0 - 8.[address] [facility] (Lab) [address] [place] [address], 67923, 07/22/2024 19:03:47 07/22/20 24 07/22/2024 COMPR EHENS JAGUAR METAB OLIC PANEL (CMP) albumin 3.9 gm/dL 3.4 - 5.[address] [facility] (Lab) [address] [place] [address], 05280, 07/22/2024 19:03:47 07/22/20 24 07/22/2024 COMPR EHENS JAGUAR METAB OLIC PANEL (CMP) age [address] [facility] (Lab) [address] [place] [address], 98905, 07/22/2024 19:03:47 07/22/20 24 07/22/2024 COMPR EHENS JAGUAR METAB OLIC PANEL (CMP) eGFR (non-afr.sharri r.) 45 mL/mi n Not Available [facility] (Lab) [address] [place] [address], 31189, 07/22/2024 19:03:47 09/14/20 24 07/22/2024 COMPR EHENS JAGUAR METAB OLIC PANEL (CMP) eGFR (afr-binh n) 54 mL/mi n eGFR <60 ml/mi n for >=3 month s is indic ative of chron ic kidne y The eGFR calcu lated using the MDRD Study equat ion is valid ated non hospi taliz ed patie nts 18 to 70 years of age and is not rep patie nts less than 18 years of age. Not Available [facility] (Lab) [address] [place] [address], 99575, 07/22/2024 19:03:47 07/22/20 24 07/22/2024 LACTI C ACID lactic acid 2.3 mmol/ L 0.7 - 2.[address] [facility] ([facility]) [address] [place] [address], 61078, 07/22/2024 20:06:47 07/22/20 24 07/22/2024 DRUG SCN 13 PANEL (MEDT OX)* drug scn 13 panel (medtox)* URINE DRUG SCREE N (13 DRUGS ) Not Available [facility] (Lab) [address] [place] [address], 30312, 07/22/2024 20:26:48 07/22/20 24 07/22/2024 DRUG SCN 13 PANEL (MEDT OX)* cannabinoids POSITI VE cutoff = 50 NG/mL abnormal Not Available [facility] (Lab) [address] [place] [address], 70860, 07/22/2024 20:26:48 07/22/20 24 07/22/2024 DRUG SCN 13 PANEL (MEDT OX)* phencyclidin e NEGATI VE cutoff = 25 NG/mL Not Available [facility] ([facility]) [address] [place] [address], 19853, 07/22/2024 20:26:48 07/22/20 24 07/22/2024 DRUG SCN 13 PANEL (MEDT OX)* cocaine NEGATI VE cutoff = 150 NG/mL Not Available [facility] (Lab) [address] [place], [address], 07/22/2024 20:26:48 07/22/20 24 07/22/2024 DRUG SCN 13 PANEL (MEDT OX)* methamphetam lino NEGATI VE cutoff = 500 NG/mL Not Available [facility] (Lab) [address] [place] [address], 00579, 07/22/2024 20:26:48 07/22/20 24 07/22/2024 DRUG SCN 13 PANEL (MEDT OX)* opiates NEGATI VE cutoff = 100 NG/mL Not Available [facility] ([facility]) [address] [place] [address], 98104, 07/22/2024 20:26:48 07/22/20 24 07/22/2024 DRUG SCN 13 PANEL (MEDT OX)* amphetamines NEGATI VE cutoff = 500 NG/mL Not Available [facility] (Lab) [address] [place], [address], 07/22/2024 20:26:48 07/22/20 24 07/22/2024 DRUG SCN 13 PANEL (MEDT OX)* benzodiazepi uziel NEGATI VE cutoff = 150 NG/mL Not Available [facility] (Lab) [address] [place] [address], 41117, 07/22/2024 20:26:48 07/22/20 24 07/22/2024 DRUG SCN 13 PANEL (MEDT OX)* tricyclic antidep NEGATI VE cutoff = 300 NG/mL Not Available [facility] (Lab) [address] [place] [address], 73390, 07/22/2024 20:26:48 07/22/20 24 07/22/2024 DRUG SCN 13 PANEL (MEDT OX)* methadone NEGATI VE cutoff = 200 NG/mL Not Available [facility] ([facility]) [address] [place] [address], 15671, 07/22/2024 20:26:48 07/22/20 24 07/22/2024 DRUG SCN 13 PANEL (MEDT OX)* barbiturates NEGATI VE cutoff = 200 NG/mL Not Available [facility] (Lab) [address] [place], [address], 07/22/2024 20:26:48 07/22/20 24 07/22/2024 DRUG SCN 13 PANEL (MEDT OX)* oxycodone NEGATI VE cutoff = 100 NG/mL Not Available [facility] (Lab) [address] [place], [address], 07/22/2024 20:26:48 07/22/20 24 07/22/2024 DRUG SCN 13 PANEL (MEDT OX)* buprenorphin e NEGATI VE cutoff = 10 mg/mL Suita ble for medic al purpo ses only. This scree n will not detec t all drugs withi n each class . URINE DRUG SCREE N CUTOF F VALUE S CANNA BINOI DS 50 ng/mL PHENC YCLID INE 25 ng/mL COCAI NE 150 ng/mL METHA MPHET AMINE S 500 ng/mL OPIAT ES 100 ng/mL AMPHE TAMIN ES 500 ng/mL BENZO DIAZE PINES 150 ng/mL TRICY CLIC ANTID EP 300 ng/mL METHA DONE 200 ng/mL JESSICA TURAT ES 200 ng/mL OXYCO DONE 100 ng/mL BUPRE NORPH INE 10 ng/mL Not Available [facility] ([facility]) [address] [place] [address], 65299, 07/22/2024 20:26:48 07/22/20 24 07/22/2024 URINA LYSIS ROUTI NE* collection mode: VOID Not Available [facility] ([facility]) [address] [place] [address], 39089, 07/22/2024 20:39:49 07/22/20 24 07/22/2024 URINA LYSIS ROUTI NE* color YELLOW yellow Not Available [facility] ([facility]) [address] [place] [address], 59011, 07/22/2024 20:39:49 07/22/20 24 07/22/2024 URINA LYSIS ROUTI NE* appearance HAZY clear Not Available [facility] ([facility]) [address] [place] [address], 48438, 07/22/2024 20:39:49 07/22/20 24 07/22/2024 URINA LYSIS ROUTI NE* glucose urine NEGATI VE negati ve mg/dL Not Available [facility] (Lab) [address] [place], [address], 07/22/2024 20:39:49 07/22/20 24 07/22/2024 URINA LYSIS ROUTI NE* bilirubin NEGATI VE negati ve Not Available [facility] (Lab) [address] [place] [address], 90776, 07/22/2024 20:39:49 07/22/20 24 07/22/2024 URINA LYSIS ROUTI NE* ketones 15 negati ve mg/dL abnormal Not Available [facility] (Lab) [address] [place] [address], 25301, 07/22/2024 20:39:49 07/22/20 24 07/22/2024 URINA LYSIS ROUTI NE* spec gravity 1.015 1.003 - 1.[address] [facility] (Lab) [address] [place] [address], 70233, 07/22/2024 20:39:49 07/22/20 24 07/22/2024 URINA LYSIS ROUTI NE* pH urine 6.5 5.0 - 7.[address] [facility] (Lab) [address] [place] [address], 48850, 07/22/2024 20:39:49 07/22/20 24 07/22/2024 URINA LYSIS ROUTI NE* protein NEGATI VE negati ve mg/dL Not Available [facility] (Lab) [address] [place], [address], 07/22/2024 20:39:49 07/22/20 24 07/22/2024 URINA LYSIS ROUTI NE* urobilinogen 0.2 <or= 1 eu/dL Not Available [facility] ([facility]) [address] [place] [address], 17504, 07/22/2024 20:39:49 07/22/20 24 07/22/2024 URINA LYSIS ROUTI NE* nitrite NEGATI VE negati ve Not Available [facility] ([facility]) [address] [place] [address], 38208, 07/22/2024 20:39:49 07/22/20 24 07/22/2024 URINA LYSIS ROUTI NE* blood NEGATI VE negati ve Not Available [facility] ([facility]) [address] [place] [address], 09155, 07/22/2024 20:39:49 07/22/20 24 07/22/2024 URINA LYSIS ROUTI NE* leukocytes MODERA TE negati ve abnormal Not Available [facility] ([facility]) [address] [place] [address], 65627, 07/22/2024 20:39:49 07/22/20 24 07/22/2024 URINA LYSIS ROUTI NE* microscopic* INDICA EMILIO Not Available [facility] ([facility]) [address] [place] [address], 43050, 07/22/2024 20:39:49 07/22/20 24 07/22/2024 URINA LYSIS ROUTI NE* WBCs 25-100 0-5 / hpf Not Available [facility] ([facility]) [address] [place] [address], 08726, 07/22/2024 20:39:49 07/22/20 24 07/22/2024 URINA LYSIS ROUTI NE* RBCs 0-5 0-5 / hpf Not Available [facility] ([facility]) [address] [place], [address], 07/22/2024 20:39:49 07/22/20 24 07/22/2024 URINA LYSIS ROUTI NE* epith cells 5-10 0-5 / hpf Not Available [facility] ([facility]) [address] [place] [address], 11537, 07/22/2024 20:39:49 07/22/20 24 07/22/2024 URINA LYSIS ROUTI NE* cell types squamo us Not Available [facility] ([facility]) [address] [place] [address], 18863, 07/22/2024 20:39:49 07/22/20 24 07/22/2024 URINA LYSIS ROUTI NE* crystals none none Not Available [facility] ([facility]) [address] [place] [address], 33521, 07/22/2024 20:39:49 07/22/20 24 07/22/2024 URINA LYSIS ROUTI NE* bacteria modera te none Not Available [facility] ([facility]) [address] [place] [address], 20361, 07/22/2024 20:39:49 07/22/20 24 07/22/2024 URINA LYSIS ROUTI NE* mucus none none Not Available [facility] ([facility]) [address] [place] [address], 11083, 07/22/2024 20:39:49 07/22/20 24 07/22/2024 URINA LYSIS ROUTI NE* casts none none /lpf Not Available [facility] ([facility]) [address] [place] [address], 19305, 07/22/2024 20:39:49 07/22/20 24 07/24/2024 CULT URINE CULTU RE* cult urine culture* URINE CULTU RE Not Available [facility] ([facility]) [address] [place] [address], 10896, 07/24/2024 09:47:33 07/22/2007/24/2024 CULT URINE CULTU RE* collection mode: CLEAN CATCH Micro biolo gy Speci men Sourc e Urine Colle ction Date 07/22 Speci men Note: URINE Colle ction Time 20:08 Exam Id. No: [id number] Recei pt Date 07/22 ----- ----- ----- ----- ----- ----- ----- ----- ----- ----- ----- ----- ----- ----- ----- ----- Organ ism # 1: Mixed Gram Posit jaguar Growt h (mgp) CC= >100, 000 CFU/m L 07/24.0 919.T S . 07/24.0 919.T S .COMP LETE Not Available [facility] ([facility]) [address] [place] [address], 99645, 07/24/2024 09:47:33 07/22/20 24 07/24/2024 CULT URINE CULTU RE* cult urine culture* URINE CULTU RE Not Available [facility] ([facility]) [address] [place] [address], 25002, 07/24/2024 09:56:37 07/22/20 24 07/24/2024 CULT URINE CULTU RE* collection mode: CLEAN CATCH Micro biolo gy Speci men Sourc e Urine Colle ction Date 07/22 Speci men Note: URINE Colle ction Time 20:08 [place]. No: [id number] Recei pt 07/22 ----- ----- ----- ----- ----- ----- ----- ----- ----- ----- ----- ----- ----- ----- ----- ----- Organ ism # 1: Mixed Gram Posit jaguar Growt h (mgp) CC= >100, 000 CFU/m L 07/24.0 919.T S . 07/24.0 919.T S .COMP LETE Not Available [facility] ([facility]) [address] [place] [address], 57678, 07/24/2024 09:56:37 07/24/20 24 07/24/2024 urina lysis , dipst ick Leukocytes Negati ve Not Available [address], [address], 07/24/2024 10:28:22 07/24/20 24 07/24/2024 urina lysis , dipst ick Nitrite negati ve Not Available [address], [address], 07/24/2024 10:28:22 07/24/20 24 07/24/2024 urina lysis , dipst ick Urobilinogen .2 Not Available [address], [address], 07/24/2024 10:28:22 07/24/20 24 07/24/2024 urina lysis , dipst ick Protein Negati ve Not Available [address], [address], 07/24/2024 10:28:22 07/24/20 24 07/24/2024 urina lysis , dipst ick pH 6.0 Not Available [address], [address], 07/24/2024 10:28:22 07/24/20 24 07/24/2024 urina lysis , dipst ick Blood Negati ve Not Available [place], [address], 07/24/2024 10:28:22 07/24/20 24 07/24/2024 urina lysis , dipst ick Specific [place] 1.000 Not Available [address], [address], 07/24/2024 10:28:22 07/24/20 24 07/24/2024 urina lysis , dipst ick Ketone Negati ve Not Available [address], [address], 07/24/2024 10:28:22 07/24/20 24 07/24/2024 urina lysis , dipst ick Bilirubin Negati ve Not Available [address], [address], 07/24/2024 10:28:22 07/24/20 24 07/24/2024 urina lysis , dipst ick Glucose Negati ve Not Available [address], [address], 07/24/2024 10:28:22 07/24/20 24 07/24/2024 urina lysis , dipst ick Appearance Clear Not Available [address], [address], 07/24/2024 10:28:22 07/24/20 24 07/24/2024 urina lysis , dipst ick Color Pale Yellow Not Available [address], [address], 07/24/2024 10:28:22 12/17/19 24 12/17/2023 mm scree clint bilat mammo W keren W CAD [facility] [place] [id number] PACS TRANSC RIPTIO N REPORT _ Patien t Name: ABBEY JOEL SE MRN: Sex: : Age: [id number] F [id number] Accoun t: Access ion: Admit: StayTy pe: [id number] 12/17/19 24 O/P Ordere d: Order ID: Submit emilio: Nick Bolton er: 2023 15:28 [id number] NLS COLIN ROBERTS emilio: Techno logist : Result ed: 2023 15:46 KVK 2023 16:46 _ Study Descri ption: MM SCREEN ING BILAT MAMMO W KEREN W CAD Study Reason : Screen ing TECHNI QUE: 2D digita l images with tomosy nthesi s, CView images and CAD COMPAR ANJALI: 2014 throug h 2020 FINDIN GS: The breast s are compos ed of scatte red fibrog landul ar densit ies, Breast Densit y catego ry B. No suspic ious masses or suspic ious microc alcifi cation s are seen. No skin thicke clint or abnorm al axilla ry lymph nodes are seen. There has been no signif icant change from prior exams. IMPRES MARIAM: BI-RAD S Catego ry 1, Negati ve mammog hung Yearly screen ing mammog sharon is recomm ended. Breast Densit y - Catego ry B, scatte red fibrog landul ar densit ies. Breast densit y Catego ry C or D implie s that the patien t has dense breast tissue . Dense breast tissue can make it harder to find cancer on a mammog hung. Dense breast tissue is also associ ated with an increa sed risk of breast cancer . This inform ation about the result of the mammog hung report was provid ed to the patien t to raise their awaren ess. Use this report when you speak with the patien t about their risks for breast cancer , which includ es their family histor y. At that time, you may recomm end additi onal screen ing tests (Ultra sound or MRI) as these tests may add signif icant inform ation. A negati ve radiog raphic report should not delay biopsy if a domina nt or clinic ally suspic ious mass is presen t. Up to ten percen t of cancer s are not identi fied on mammog sharon. A negati ve report may reinfo rce clinic al impres mariam. Adenos is and dense breast s may obscur e an underl niko neopla sm. False positi ve report s averag e 6 to 10%. Patien t will receiv e a letter notify ing them of these result s. Report Digita lly Signed by Rogelio Brown on 2023 04:[email or web address] [facility] ([facility]) [address] [place] [address], 26928, 12/20/2023 18:25:21 07/22/20 24 07/22/2024 CT angio graph y chest [facility] RAD[facility] OGY [place] [id number] RADIOL OGY TRANSC RIPTIO N REPORT _ Shyla t Name: ABBEY JOEL M MRN: Sex: : Age: [id number] F [id number] Accoun t: Access ion: Admit: StayTy pe: [id number] E Margie d: Order ID: Submit emilio: Nick Bolton er: 2023 19:20 [id number] YOVANA SungCARMELA ORTIZ Wei emilio: Techno logist : Result ed: 2023 20:27 AT 2023 21:12 _ EXAMIN ATION: CT ANGIOG [facility] HISTOR Y: Reason for CT: ?pe; new afib Add'l Info: emesis w referr ed should er pain TECHNI QUE: Helica l CT angiog hung of the chest was perfor med follow ing the intrav enous admini strati on of 71ml of Omnipa que 350. Maximu m intens ity projec tion (MIP) were reform atted. COMPAR ANJALI: Septem 2017 FINDIN GS: VASCUL AR Heart: Normal size heart withou t signif icant perica rdial effusi on Aorta: Incomp letely opacif ied. Normal calibe r. Pulmon blanco arteri es: No fillin g defect s NON-VA SCULAR Lungs and large airway s: No consol idatio n. Centra l airway s patent . Pleura : No pleura l effusi on. No pneumo thorax . Medias tinum and bianca: Tiny hiatal hernia . No pathol ogical ly enlarg ed lymph nodes. Ectopi c thyroi d extend s into the anteri or medias tinum. Limite d views of the upper abdome n: No signif icant findin gs. Osseou s struct ures: No acute fractu re. No muscul ar asymme try about the chest wall. IMPRES MARIAM: No pulmon blanco artery emboli sm. Thank you for makenzie holden partic ipate in the care of this patien t. If you are a health care provid er and have any questi ons regard ing this report , please contac t the number below. For shyla ts who have questi ons please contac t the health care nilda berger that reques emilio your lenorain g first. Electr onical ly signed by: Martine Duran MD [facility] kateryna Younger humble ([phone]), at 024 9:[email or web address] [facility] ([facility]) [address] [place] [address], 34004, 07/24/2024 08:37:01 07/23/20 24 07/22/2024 EKG order danilo ng 12 [facility] [address] EKG TRANSC KATELYNN Pena REPORT _ Accoun t: Access ion: Admit: StayTy pe: [id number] E/R Observ ation: Order ID: Submit emilio: Nick lam Provid er: 2023 18:13 [id number] BERNARD CHAIREZ _ [place] [id number] [facility] al Test Date: 07-22 Pat Name: SEAN Patton ment: Kleber bergman ID: [id number] Room: Gender : F Techni oz: tw : [birth year] Reques emilio By: BERNARD Contreras Order Number : [id number] Adalid davalos MD: Danie doyle Measur ements Interv als [place] Rate: 148 P: 0 OK: 0 QRS: -52 QRSD: 100 T: 0 QT: 318 QTc: 499 Interp retive Statem ents Atrial fibril lation with rapid ventri cular respon se with premat ure ventri cular or aberra ntly conduc emilio comple xes Left anteri or fascic ular block Minima l voltag e criter ia for LVH, may be normal varian t ( Rickey l produc t ) ST & T wave abnorm ality, consid er latera l ischem ia No previo us ECG availa ble for compar anjali Electr onical ly Signed On 024 10:41: 30 EDT by Danie doyle [email or web address] [facility] ([facility]) [address] [place] [address], 96607, 07/24/2024 08:37:01 07/23/20 24 07/22/2024 EKG order danilo lam 12 lead [facility] FALGUNI Juancho rubén [facility] [address] EKG TRANSC KATELYNN Pena REPORT _ Accoun t: Access ion: Admit: StayTy pe: [id number] E/R Observ ation: Order ID: Submit emilio: Nick lam Provid er: 2023 21:02 [id number] BERNARD RAMSEY N _ [place] [id number] [facility]: [facility]22 Pat Name: SEAN Patton ment: Kleber [place] t ID: [id number] Room: 5A Gender : Edwin Soto cian: john : [birth year] Reques emilio By: CHRISTIE Hodges Order Number : [id number] Adalid davalos MD: Danie doyle Measur ements Interv als [place] Rate: 78 P: 69 OK: 156 QRS: -50 QRSD: 98 T: 0 QT: 428 QTc: 487 Interp retive Statem ents Normal sinus rhythm Left anteri or fascic ular block Minima l voltag e criter ia for LVH, may be normal varian t ( Rickey l produc t ) Compar ed to ECG 2023 18:13: 13 Atrial fibril lation no longer presen t Ventri cular premat ure comple x(es) no longer presen t Aberra nt conduc tion of suprav entric ular beat(s ) no longer presen t ST (T wave) deviat ion no longer presen t Electr onical ly Signed On 024 10:44: 44 EDT by Danie doyle INTERFACE [facility] ([facility]) [address] [place] [address], 24654, 07/23/2024 10:45:43 07/24/20 24 09/18/2021 imagi ng/di agnos tic resul t No observ ation record ed. [email or web address] Not Available 07/24 03:49:37 07/24/20 24 09/11/2019 MAMMO , tomos ynthe sis, scree clint No observ ation record ed. [email or web address] Not Available 07/24 03:50:14 07/24/20 24 12/20/2020 MAMMO , tomos ynthe sis, scree clint No observ ation record ed. [email or web address] Not Available 07/24 03:50:15 Result Notes None recorded. Problems Name Problem SNOMED Code Status Onset Date Resolution Date Notes Provider Name and Address Organization Details Recorded Time Angela garcia hyperten mariam 47557435 Active 200909/16/20 21 - Comments only - Samantha Carr APRN - -BP near goal of <130/80 today -CONTINU E lisinopr il 20mg qd -- rx sent to [facility] today Problem Code: I10; Problem Code Type: ICD-10; Not Available [facility] 3 05:10:12 Obesity [id number] Active 2009 Problem Code: E66.9; Problem Code Type: ICD-10; Not Available [facility] 3 05:10:12 Screenin g mammogra phy Active 2015 Problem Code: Z12.31; Problem Code Type: ICD-10; Not Available [facility] 3 05:10:12 Benign neoplasm of colon 90162012 Active 2015 Problem Code: D12.6; Problem Code Type: ICD-10; Not Available [facility] 3 05:10:12 Mixed hyperlip idemia 624369798 Active 201812/12/19 21 - Comments only - Samantha Carr APRN - /Obesity -congrat ulated pt on lifestyl e changes and wt loss -given fhx of CVD, we will recheck lipids and CMP today. And, if no improvem ent could consider low-dose statin -RTC in 3mo Problem Code: E78.2; Problem Code Type: ICD-10; Not Available [facility] 3 05:10:12 Adult health examinat ion Active 201809/16/20 21 - Comments only - Samantha Carr APRN - -mammo: 12/2020 cat 1, rec annual screenin g -- repeat due 12/2021 -pap: complete d today -DEXA: offer at 65yo -CRC screenin g: c-scope 07/2020, 5yr recall. D ue 07/2025 -lung ca screen: n/a, lifetime non-smok er -lipid screenin g: recheck today -ASCVD 10yr risk: calc pending lipids -DM screenin g: recheck A1c today -HIV/HCV /STI screenin g: decl STI testing today -Depress ion Screen: PHQ2 of 0 today -IZ: flu IZ given, otherwis e UTD incl COVID and booster -Vision: has appt schedule d at [facility] on -Dental: Addy , goes q6m but is overdue -- will schedule -Handout on Adv Dir given -Script Manager ed on healthy diet, exercise , and avoidanc e of etoh/ill icits. -RTC in 12mo, sooner prn Problem Code: Z00.00; Problem Code Type: ICD-10; Not Available [facility] 3 05:10:12 [place] e present [id number] Active 2018 Problem Code: Z78.0; Problem Code Type: ICD-10; Not Available [facility] 3 05:10:12 Acquired trigger finger 3320644 Active 201808/27/20 19 - Comments only - Unique Lynn MD - referred to [facility] Problem Code: M65.30; Problem Code Type: ICD-10; Not Available [facility] 3 05:10:12 Bilatera l tinnitus 38026335441 02 Active 2018 Problem Code: H93.13; Problem Code Type: ICD-10; Not Available [facility] 3 05:10:12 Prediabe demian 157635096 Active 202009/16/20 21 - Comments only - Samantha Carr APRN - -last A1c 5.5% 12/2020, recheck today -dependency counselor ed on healthy diet and exercise Problem Code: R73.03; Problem Code Type: ICD-10; Not Available [facility] 3 05:10:13 Gynecolo gic examinat ion Completed 202010/16/2021 09/16/20 21 - Comments only - Samantha Bruno [employer] - -pap w/ HPV co-testi ng complete d today Problem Code: Z01.419; Problem Code Type: ICD-10; Not Available [facility] 3 05:10:13 Increase d frequenc y of urinatio n 189921846 Active 202009/16/20 21 - Comments only - Samantha Bruno [employer] - w/ sensatio n of incomple te emptying -UA wnl today, will check bladder u/s w/ PVR and f/u pending results Problem Code: R35.0; Problem Code Type: ICD-10; Not Available [facility] 3 05:10:13 Vulval and/or perineal noninfla mmatory disorder s 714332243 Active 202009/16/20 21 - Comments only - Samantha Carr BELEN - ?dermati tis -trial OTC hydrocor tisone cream 1-2x/day for up to 2 wks -f/u in 1 mo to reassess , sooner if sx worsen Problem Code: N90.89; Problem Code Type: ICD-10; Not Available [facility] 3 05:10:13 Arthralg ia of the ankle and/or foot 091607062 Active 202009/16/20 21 - Comments only - Samantha Carr [employer] - -suspect mild sprain, sx improvin g -continu e rest, ice, gentle stretchi ng, and NSAIDs/A PAP prn -call if sx worsen or do not resolve Problem Code: M25.572; Problem Code Type: ICD-10; Not Available [facility] 3 05:10:13 Active immuniza tion Completed 202109/04/2022 Problem Code: Z23; Problem Code Type: ICD-10; Not Available [facility] 3 05:10:13 Disorder of the urinary system 923920075 Completed 201709/12/2020 Problem Code: N39.9; Problem Code Type: ICD-10; Not Available [facility] 3 05:10:13 Menorrha edil 447379647 Completed 200908/04/2023 Not Available [facility] 3 05:10:13 Screenin g mammogra phy Completed 201707/21/2018 Problem Code: Z12.31; Problem Code Type: ICD-10; Not Available [facility] 3 05:10:13 Synoviti s/tenosy novitis - hand 692477026 Completed 201709/12/2020 Problem Code: M65.849; Problem Code Type: ICD-10; Not Available [facility] 3 05:10:14 [place] ht 828982816 Completed 200908/04/2023 Problem Code: E66.3; Problem Code Type: ICD-10; Not Available [facility] 3 05:10:14 Palpitat ions 84304956 Completed 201509/12/2020 Problem Code: R00.2; Problem Code Type: ICD-10; Not Available [facility] 3 05:10:14 Bilatera l hearing loss 34177928 Completed 201808/04/2023 08/27/20 19 - Comments only - Unique Lynn MD - referred to audiolog y Problem Code: H91.93; Problem Code Type: ICD-10; Not Available [facility] 3 05:10:14 History of injury 645910213 Completed 201609/12/2020 Problem Code: Z87.828; Problem Code Type: ICD-10; Not Available [facility] 3 05:10:14 Adult health examinat ion Completed 201507/21/2018 Problem Code: Z00.00; Problem Code Type: ICD-10; Not Available [facility] 3 05:10:14 Screenin g for malignan t neoplasm of colon Completed 201707/21/2018 Problem Code: Z12.11; Problem Code Type: ICD-10; Not Available [facility] 3 05:10:14 Excessiv e and frequent menstrua tion 561030680 Completed 200910/26/2016 Problem Code: N92.0; Problem Code Type: ICD-10; Not Available [facility] 3 05:10:15 Ophthalm ic examinat ion and evaluati on Completed 201809/12/2020 Problem Code: Z01.00; Problem Code Type: ICD-10; Not Available [facility] 3 05:10:15 Chest pain 70390474 Completed 201709/12/2020 Problem Code: R07.9; Problem Code Type: ICD-10; Not Available [facility] 3 05:10:15 Hyperten sive disorder 69806999 Completed 200908/04/2023 Not Available [facility] 3 05:10:15 Cough 44965827 Completed 201709/12/2020 Problem Code: R05; Problem Code Type: ICD-10; Not Available [facility] 3 05:10:15 Dyspnea 003442408 Completed 201709/12/2020 Problem Code: R06.02; Problem Code Type: ICD-10; Not Available [facility] 3 05:10:15 Pain of left shoulder joint 31810490425 986558 Completed 201609/12/2020 Problem Code: M25.512; Problem Code Type: ICD-10; Not Available [facility] 3 05:10:15 Eczema 13904398 Active 2022 Problem Code: L30.9; Problem Code Type: ICD-10; Not Available [facility] 4 05:34:45 Acute atopic conjunct ivitis 94283567 Active 2022 Problem Code: H10.10; Problem Code Type: ICD-10; Not Available [facility] 4 05:34:45 Atrial fibrilla tion with rapid ventricu lar response 39893369392 9109 Active [address], [facility] [address] , [facility] 4 10:15:53 Atrial fibrilla tion 41192723 Active [address], [place], [address] , [facility] 4 13:02:01 Disorder of thyroid gland 16329413 Active [address], [place], [address] , [facility] 4 17:45:55 Problem Notes None recorded. Procedures Surgical History None recorded. Imaging Results Imaging Date Name Status LastModified by Organiz aton [facility] Details LastModified Time 12/17/2023 mm screening bilat mammo W keren W CAD completed [address] (Lab) [address] [place] [address], [id number], 12/20/2023 18:25:21 07/22/2024 CT angiography chest completed [address] (Lab) [address] [place] [address], [id number], 07/24/2024 08:37:01 07/22/2024 EKG order tracing 12 lead completed [address] (Lab) [address] [place] [address], [id number], 07/24/2024 08:37:01 07/22/2024 EKG order tracing [address] [facility] (Lab) [address] [place] [address], [id number], 07/23/2024 10:45:43 09/18/2021 imaging/diagnos tic result completed Information not available 07/24/2024 03:49:37 09/11/2019 MAMMO, tomosynthesis, screening completed Information not available 07/24/2024 03:50:14 12/20/2020 MAMMO, tomosynthesis, screening completed Information not available 07/24/2024 03:50:15 Procedure Notes None recorded. Medical Equipment None Reported. Allergies Allergen ID Allergen Name Allergen Category Reaction Reaction Severity Criticality Documentation Date Start Date Code Code System Note Provider Name and Address Organization Details Recorded Time 31631 sulfadiaz ine medicatio n rash severe Not available 09/17/20232009 65537 RxNorm full body rash Aller gyRea ction : 'full body rash' ; Not Available [facility] 16:26:26 Medications Name Sig Start Date Stop Date Status Note LastModified by Organization Details LastModified Time Prescript ion - Renewal active lisinopr il 20 mg tablet[R xRsp] Not Available Not Available Not Available lisinopri l 20 mg tablet take 1 tablet by mouth once daily active Not Available Not Available No t Available triamcino lone acetonide 0.1 % topical cream 1 a small amount to affected area twice a day do not exceed 10 days use at a time, for use on nasha jose arms 01/11 completed Not Available Not Available Not Available hydrochlo rothiazid e 25 mg tablet 1TAB daily 12/19 completed Not Available Not Available Not Available estradiol 0.01% (0.1 mg/gram) vaginal cream 02/11 completed Not Available Not Available Not Available naproxen 500 mg tablet Take 1 tab by mouth twice daily as needed for pain 01/17 completed Not Available Not Available Not Available Calcium-5 00 500 mg (as calcium carbonate 1,250 mg) tablet Take 1 tablet by mouth once a day 2017 active Not Available Not Available Not Avai lable zinc once a day as needed 01/11 completed Not Available Not Available Not Available ProAir HFA 90 mcg/actua tion aerosol inhaler 2 inhalati ons every 4-6 hours prn cough, SOB 08/06 completed Not Available Not Available Not Available Multivita l 0.4 mg-162 mg-18 mg tablet 1 tab qd 2017 active Not Available Not Available Not Avai lable Multivita l 1 tablet once a day 2017 active Not Available Not Available Not Avai lable Lotemax 0.5 % eye ointment APPLY SMALL AMOUNT TO THE EYELID EVERY DAY NEEDED active Not Available Not Available No t Available Metamucil 3.4 gram/5.4 gram oral powder 02/11 completed Not Available Not Available Not Available Eye Vitamin and Minerals 2 daily active Not Available Not Available Not Available Metamucil 0.4 gram capsule Take 4 capsules every day by oral route. active Not Available Not Available No t Available Shingrix (PF) 50 mcg/0.5 mL intramusc ular suspensio n, kit UAD 09/08 completed Not Available Not Available Not Available Paxlovid 300 mg (150 mg x 2)-100 mg tablets in a dose pack Take 3 tablet by mouth twice a day for 5 days 01/26 completed Not Available Not Available Not Available PreserVis ion AREDS 2 Plus Multivit 200 mcg-15 mcg-5 mg-1 mg capsule 2019 active Not Available Not Available Not Avai lable PreserVis ion AREDS 2 Plus MV 01/16 completed Not Available Not Available Not Available Vitals Date Recorded Body height Body mass index (BMI) Body weight Body temperature Heart rate Systolic blood pressure Diastolic blood pressure Provider Name and Address Organization Details Last Updated DateTime 4 161.29 cm 35.4 kg/m2 90525.9 7 g 98 [degF] 101 /min 131 mm[Hg] 88 mm[Hg] SHADE KWOK RN [facility] 4 09:24:47 Date Recorded Body height Body mass index (BMI) Body weight Body temperature Oxygen saturation Oxygen saturation in Arterial blood by Pulse oximetry Heart rate Systolic blood pressure Diastolic blood pressure Provider Name and Address Organization Details Last Updated DateTime 4 161.29 cm 35 kg/m2 94058.6 3 g 96.6 [degF] 99 % 99 % 100 /min 110 mm[Hg] 66 mm[Hg] ARLETTE RIGGINS RN [facility] 4 14:37:42 Date Recorded Body height Body mass index (BMI) Body weight Body temperature Oxygen saturation Oxygen saturation in Arterial blood by Pulse oximetry Heart rate Systolic blood pressure Diastolic blood pressure Provider Name and Address Organization Details Last Updated DateTime 4 161.29 cm 35.9 kg/m2 22409.0 3 g 97.6 [degF] 99 % 99 % 80 /min 126 mm[Hg] 78 mm[Hg] ELIZABETH BARBOSA LPN [facility] 4 09:50:11 Social History Question Answer Notes LastModified by Organizat ion Details LastModified Time Tobacco Smoking Status Never Smoker ARLETTE RIGGINS RN [facility], [facility] 01/17/2024 14:35:38 What Was The Date Of Your Most Recent Tobacco Screening? 01/17/2024 Information not available 01/17/2024 Has Tobacco Cessation Counseling Been Provided? No [email or web address] Information not available 01/17/2024 Do You Or Have You Ever Used Any Other Forms Of Tobacco Or Nicotine? No [email or web address] Information not available 01/17/2024 Sex: Female Functional Status None recorded. Mental Status None recorded. Family History Relationship Description Onset Age of this Age Resolved Age Notes Father Family history of he art failure Notes:*Problem: Significant for father with early heart disease and a brother with hypertension and substance abuse (etoh) issues. Mother: balance issues and neuropathy Father: d. early CV, from PNA in his 80s MGM: d. cerebral hemorrhage in her 30s MGF: d. in his 80s dementia PGF: d. from stroke in his early 60s PGM: d. in late 70s from PNA, heart disease other siblings (4 bro and 1 sis and 2 1/2bro) all alive and well children: son 27yo- GI issues (IBS) daughter 24yo- A&W reviewed and updated by Samantha Carr APRN September 16, 2021 8:26 AM Medical History No medical history recorded. Gynecological HistoryNo gynecological history recorded. Obstetrics History GPAL:G 0 P 0 0 0 0 Immunizations Vaccine Type Date Status Provider Name and Address Organization Details Recorded Time Td (adult), 2 Lf tetanus toxoid, preservative free, adsorbed 02/11/2023 completed Not Available [facility] 09/17/2023 06:24:52 Tdap 01/04/2012 completed Not Available [facility] 06:24:52 Tdap 05/01/2008 completed Not Available [facility] 06:24:52 Influenza, split virus, quadrivalent, PF 08/18/2022 completed Not Available [facility] 09/17/2023 06:24:52 Influenza, split virus, quadrivalent, PF 08/21/2019 completed Not Available [facility] 09/17/2023 06:24:53 Influenza, split virus, quadrivalent, PF 09/12/2020 completed Not Available [facility] 09/17/2023 06:24:53 Influenza, split virus, quadrivalent, PF 09/16/2021 completed Not Available [facility] 09/17/2023 06:24:53 Influenza, split virus, quadrivalent, preservative 01/17/2018 completed Not Available [facility] 09/17/2023 06:24:53 Influenza, split virus, quadrivalent, preservative 09/02/2018 completed Not Available [facility] 09/17/2023 06:24:53 zoster recombinant 12/13/2020 completed Not Available [facility] 09/17/2023 06:24:53 zoster recombinant 09/12/2020 completed Not Available [facility] 09/17/2023 06:24:53 COVID-19, mRNA, LNP-S, PF, 100 mcg/0.5mL dose or 50 mcg/0.25mL dose 09/11/2021 completed Not Available [facility] 09/17/20 06:24:53 COVID-19 vaccine, vector-nr, rS-Ad26, PF, 0.5 mL 02/07/2021 completed Not Available [facility] 09/17/2023 06:24:53 Influenza, split virus, quadrivalent, PF 08/17/2023 completed Not Available [facility] 11/19/2023 05:30:31 COVID-19, mRNA, LNP-S, PF, artis-sucrose, 30 mcg/0.3 mL 08/17/2023 completed Not Available [facility] 11/19/2023 05:30:34 Past Encounters Encounter ID Performer Location Encounter Start Date Encounter Closed Date Diagnosis/Indication Diagnosis SNOMED-CT Code Diagnosis ICD10 Code [id number] CELIO STOUT MD [address] [address] 01/12/2024 09:01:24 01/12/2024 10:19:21 Abdominal pain 03533227 R10.9 [id number] CHRISTIANO JI MD [address] [address] 01/17/2024 14:29:40 01/17/2024 15:21:15 Lower abdominal pain 44986632 R10.30 Hematochezia 309252723 K 92.1 [id number] Mgean Vazquez [address] [address] 07/24/2024 09:39:11 07/24/2024 10:56:41 Atrial fibrillation with rapid ventricular response [id number] 39405 I48.91 Aftercare 910634247 Z51. 89 Disorder o f thyroid gland 31962655 E07.9 Health Concerns Section Related Observation LastModified by Organization Detai ls LastModified Time None Recorded Concern Status LastModified by Organization Details LastModified Time None Recorded Advance Directives Directive None Recorded Payers Encounter Date Sequence Insurance Name Policy Number Policy Cruz Covered Member ID Cruz Member ID Guarantor Name 01/12/2024 1 [place] [facility] Ana Joel [id number] Ana Joel 01/17/2024 1 [place] [facility] Ana Joel [id number] Ana Joel Notes Date Note Type Note Provider Name and Address Organization Details Recorded Time 01/12/2024 text/html HPI Notes: CC: A BD PAIN, CHANGE IN BOWELS pt reports 3 days of lower abd pain, gas, and dec'd fecal output. still having BMs, but smaller volume and doesn't feel like she's completely emptying. has had some nausea, no vomiting. no blood in stools, no fevers. has had significant fatigue in past few days as well. denies other symptoms of illness such as congestion, cough, sore throat. has had some inc in urinary freq, but no dysuria. CHRISTIANO JI MD [address], [place], [address], [facility]. 01/13/2024 08:22:42 01/17/2024 text/html HPI Notes: Seen by PCP last week for constipation. A urine culture was sent at that time but returned as contaminated. She was started on a regiment to try and relieve constipation. She tried fluids and fiber, did not yet try stool softener. Reports she was a little better following visit last week. Yesterday morning she had a return of lower abdominal pain. Feels as if it pushing on her bladder. Does not go into her back. No pain with urination, but rectal pain passing stools. She reports that she does not think she was constipated. She has had looser stool. She felt better with passing gas. Pain has continued to increase. Yesterday and last night pain was bad - rates at a 7/10 at its worst, impacted her activities. She had BM last night, which was soft, painful, and had streaks of blood and mucous. Reports she has not been passing much in the way of stool - wet, soft, very small amounts, although 2 days ago had a larger BM. Normally has a BM every morning following her coffee. Has had baseline colonoscopy, and a f/u after 5 years. Denies fever. Did have some chills. Has a lot of fatigue. No hx of abdominal surgeries. No vaginal bleeding to her knowledge. EWA nix, [place] - [facility]. 01/17/2024 16:56:53 OBGyn Episode No OBEpisode recorded.
[2024-07-24 20:08] LABS: TSH (W/Ref FT4) 0.96 uIU/mL (0.36-3.74)
== END 2024-07-24 19:16 | disposition home or self-care (01) ==
LOC: NCHCN 19:15
PROVIDERS: PCP Family Medicine; Visit Provider Nurse Practitioner Family
DX: I48.91 Unspecified atrial fibrillation (principal)
CPT/HCPCS: 84443

== ENCOUNTER 2025-05-23 19:04 | Outpatient (REF) | payer BC, SELFPAY ==
[2025-05-23 22:45] LABS: Anion Gap 8.1 mmol/L (3-11); BUN 20 mg/dL (7-18); CO2 27.9 mmol/L (21.0-32.0); Calcium 9.3 mg/dL (8.5-10.1); Chloride 103 mmol/L (98-107); Estimated GFR 96.52 (mL/min/1.73m2); Glucose 102 mg/dL (74-106); Potassium 4.1 mmol/L (3.5-5.1); Sodium 139 mmol/L (136-145)
== END 2025-05-23 19:05 | disposition home or self-care (01) ==
LOC: NCHCN 19:04
PROVIDERS: PCP Family Medicine; Visit Provider Family Medicine
DX: I10 Essential (primary) hypertension (principal)
CPT/HCPCS: 80048